=== PATIENT | female | born 1960 | race Caucasian/White ===

== ENCOUNTER 2016-12-21 10:43 | Emergency (ER) | payer SELFPAY ==
[~2016-12-21] VITALS: Ht 157.5 cm; Wt 66.9 kg
[2016-12-21] MEDS ORDERED: CLINDAMYCIN HC150 MG PO (11:38)
[2016-12-21] MEDS ORDERED: PERIDEX1 ML MM (11:38)
[2016-12-21] MEDS ORDERED: TRAMADOL HCL50 MG PO (11:38)
[2016-12-21 11:49] VITALS: BP 154/96
== END 2016-12-21 11:57 | disposition home or self-care (01) ==
LOC: EME 10:43
DX: K04.7 Periapical abscess without sinus (principal)
CPT/HCPCS: 99281; 99283